=== PATIENT | female | born 1980 | race Caucasian/White ===

== ENCOUNTER → 2016-10-30 | Outpatient (CLI) | payer OTHER ==
--- NOTE | 2016-10-30 14:50 | KCIC ---
Examination: CT maxillofacial bones without contrast. HISTORY History of chronic sinusitis, headache, congestion. COMPARISON None available. TECHNIQUE Axial CT images of the sinuses were performed without contrast. Coronal sagittal reformats were performed. Exposure: One or more of the following dose reduction technique were utilized for this examination: 1. Automated exposure control. 2.Adjustment of MA and /or KV according to patient size. 3. Use of iterative reconstruction technique. Findings: The bilateral orbital globes appear intact. Orbital fat is maintained. There is moderate mucosal thickening identified in the bilateral frontal sinuses. Severe mucosal thickening with near complete opacificationof the bilateral ethmoidal sinuses. Moderate mucosal thickening identified in the bilateral maxillary sinuses with moderate to severe narrowing of the bilateral osteomeatal complexes. Mild mucosal thickening identified in the left sphenoid sinus. The mastoid air cells are clear. IMPRESSION Diffuse mucosal prominence as described above in the bilateral frontal sinuses, ethmoidal sinuses, maxillary sinuses and left sphenoid sinus likely due to sinus disease. Electronically signed by: Antoine Riley (Oct 30, 2016 14:48:30)
== END | disposition home or self-care (01) ==
LOC: KCIC CT 14:17
PROVIDERS: ATTEND Nurse Practitioner Family
DX: J32.0 Chronic maxillary sinusitis (principal)
CPT/HCPCS: 70486

== ENCOUNTER → 2017-04-22 | Outpatient (CLI) | payer OTHER ==
--- NOTE | 2017-04-22 16:25 | KCIC ---
CT MAXILLOFACIAL WO CONTRAST dated 04/22/2017 3:30 PM Indication: Chronic pansinusitis, pressure, headache Comparison: October 30, 2016 Technique: CT imaging was performed of the[maxillofacial region], multiplanar reconstruction images submitted. One or more of the following individualized dose reduction techniques were utilized for this examination: 1. Automated exposure control 2. Adjustment of the mA and/or kV according to patient size 3. Use of iterative reconstruction technique Findings: There is mild residual mucosal thickening near floors of the maxillary sinuses bilaterally on the order of 2 mm in greatest thickness although improved aeration in the interval. There is residual partial opacification of right ethmoid air cells and mild to moderate left ethmoid air cell mucosal thickening although overall improved aeration of the ethmoid air cells in the interval. There is some increased mucosal thickening of the anterolateral right sphenoid sinus up to 6 mm in greatest thickness. There is improved aeration of the left sphenoid sinus. There is improved aeration of the frontal sinus, minimal residual mucosal thickening on the right extending to the frontal ethmoidal recess. Mastoid air cells are aerated. There is prominence of the subarachnoid spaces closer to the vertex. Ostiomeatal units are patent bilaterally. IMPRESSION: 1. There is some residual paranasal sinus mucosal thickening as stated most notable of the ethmoid air cells greater on the right. Overall degree of mucosal thickening has decreased other than somewhat increased of the anterolateral right sphenoid sinus. There are no air-fluid levels of the paranasal sinuses. Mastoid air cells are aerated. Electronically signed by: Raphael Delvalle MD (04/22/2017 4:22 PM) [id number]
== END | disposition home or self-care (01) ==
LOC: KCIC CT 15:18
PROVIDERS: ATTEND Otolaryngology
DX: J32.4 Chronic pansinusitis (principal)
CPT/HCPCS: 70486